=== PATIENT | female | born 1970 | race Caucasian/White ===

== ENCOUNTER → 2017-04-02 | Outpatient (CLI) | payer OTHER ==
--- NOTE | 2017-04-02 16:58 | RADIOLOGY REPORT (SQ) ---
EXAM DESCRIPTION: CT ABD/PELVIS WITH IV ORAL COMPLETED DATE/TIME: 04/02/2017 2:17 pm REASON FOR STUDY: EPIGASTRIC PAIN/LUQ PAIN/ VENTRAL HERNIA W/O OBSTRUCTION OR GANGRENE R10.13 EPIGA STRIC PAIN R10.12 LEFT UPPER QUADRANT PAIN COMPARISON: 06/18/2013 TECHNIQUE: CT scan of the abdomen and pelvis performed using helical scanning technique with dynamic intravenous contrast injection. No oral contrast. Images reviewed with lung, soft tissue, and bone windows. Reconstructed coronal and sagittal MPR images reviewed. Delayed images for evaluation of the urinary system also acquired. All images stored on PACS. All CT scanners at this facility use dose modulation, iterative reconstruction, and/or weight based d osing when appropriate to reduce radiation dose to as low as reasonably achievable (ALARA). [facility]: Dose Right [facility]: CareDose [facility]: Dose Right [facility]: Teradose 4D [facility]: Ion Torrent CONTRAST TYPE AND DOSE: contrast/concentration: Isovue 370.00 mg/ml; Total Contrast Delivered: 100.0 ml; Total Saline Delivered: 72.0 ml RENAL FUNCTION: None required. The patient is less than 50 years old. RADIATION DOSE: Up-to-date CT equipment and radiation dose reduction techniques were employed. CTDIv ol: 23.7 - 23.9 mGy. DLP: 2510 mGy-cm.. LIMITATIONS: None. FINDINGS: LOWER CHEST: No significant findings. No nodules or infiltrates. LIVER: Normal size. No masses. No dilated ducts. SPLEEN: Normal size. No focal lesions. PANCREAS: No masses. No significant calcifications. No adjacent inflammation or peripancreatic fluid collections. Pancreatic duct not dilated. GALLBLADDER: Surgically absent. ADRENAL GLANDS: No significant masses or asymmetry. RIGHT KIDNEY AND URETER: No solid masses. No significant calcifications. No hydronephrosis or hyd roureter. LEFT KIDNEY AND URETER: No solid masses. No significant calcifications. No hydronephrosis or hydr oureter. AORTA AND VESSELS: No aneurysm. No dissection. Renal arteries, SMA, celiac without stenosis. RETROPERITONEUM: No retroperitoneal adenopathy, hemorrhage or masses. BOWEL AND PERITONEAL CAVITY: No masses or inflammatory changes. No free fluid or peritoneal masses. APPENDIX: Normal. PELVIS: Urinary bladder and uterus are normal. A small ovarian cyst is seen on each side. There is no free fluid. ABDOMINAL WALL: There is a 3 cm ventral hernia just to the left and just below the umbilicus containi ng only fat. BONES: No significant or acute findings. OTHER: No other significant finding. IMPRESSION: 1. There is a small ventral hernia containing only fat. 2. There is a small ovarian cyst on each side. TECHNICAL DOCUMENTATION: JOB ID: [id number] Quality ID # [id number]: Final reports with documentation of one or more dose reduction techniques (e.g., Au tomated exposure control, adjustment of the mA and/or kV according to patient size, use of iterative reconstruction technique) 2010 [employer]- All Rights Reserved
== END ==
LOC: RAD 13:43
PROVIDERS: ATTEND Internal Medicine Gastroenterology
DX: R10.13 Epigastric pain (principal); R10.12 Left upper quadrant pain; K43.9 Ventral hernia without obstruction or gangrene
CPT/HCPCS: 74177

== ENCOUNTER 2017-08-14 08:49 | Day surgery (SDC) | payer OTHER ==
[2017-08-07 10:23] LABS: HEMATOCRIT 37.6 % (36.0-47.0); HEMOGLOBIN 12.8 g/dL (12.0-15.5); HGB HCT DIFFERENCE 0.8; MEAN CORPUSCULAR HEMOGLOBIN 27.8 pg (27.0-33.4); MEAN CORPUSCULAR VOLUME 82 fl (80-97); RED CELL DISTRIBUTION WIDTH 14.1 % (11.5-14.0); WHITE BLOOD COUNT 6.2 10^3/uL (4.0-10.5)
[~2017-08-14 08:49] MED LIST: ACETAMINOPHEN 325 MG TABLET PO PRN; CEFAZOLIN 1 GM/D5W RTU 1 GM/50 ML RTUPB IV PRN; DEXAMETHASONE SOD PHOSPHATE INJ 4 MG/1 ML VIAL ONE; GLYCOPYRROLATE INJ 0.4 MG/2 ML VIAL ONE; LACTATED RINGERS 1000 ML IV PRN; LIDOCAINE 2% INJ-PF (20 MG/ML) 2 ML AMPUL ONE; NEOSTIGMINE METHYLSULFATE 10 MG/10 ML VIAL ONE; ONDANSETRON HCL INJ/PF 4 MG/2 ML SDV ONE; SUCCINYLCHOLINE CHLORIDE INJ 200 MG/10 ML VIAL ONE
[2017-08-14] MEDS ORDERED: BUPIVACAINE HCL 0.25 % INJ/PF (2.5 MG/1 ML) 30 ML VIAL ONE (09:55)
[2017-08-14] MEDS ORDERED: MIDAZOLAM 2 MG/2 ML INJ ONE (12:05)
[2017-08-14] MEDS ORDERED: FENTANYL CITRATE INJ/PF 100 MCG/2 ML AMPUL ONE (12:06)
[2017-08-14] MEDS ORDERED: PROPOFOL INJ 200 MG/20 ML VIAL IV ONE (12:06)
[2017-08-14] MEDS ORDERED: ACETAMINOPHEN 100 ML IV ONE (12:06)
[2017-08-14] MEDS ORDERED: MORPHINE SULFATE 10 MG/ML INJ IV PRN (12:56)
[2017-08-14] MEDS ORDERED: FENTANYL CITRATE INJ/PF 100 MCG/2 ML AMPUL IV PRN ×3 (12:56)
[2017-08-14] MEDS ORDERED: OXYCODONE-ACETAMINOPHEN 5-325 MG TABLET PO PRN ×3 (12:56→14:23)
[2017-08-14] MEDS ORDERED: MEPERIDINE HCL/PF INJ 25 MG/1 ML DISP.SYRIN IV PRN (12:56)
[2017-08-14] MEDS ORDERED: PROMETHAZINE HCL INJ 25 MG/1 ML VIAL IV PRN ×2 (12:56)
[2017-08-14] MEDS ORDERED: DIPHENHYDRAMINE HCL 50 MG/ML VIAL IV PRN (12:56)
--- NOTE | 2017-08-14 14:19 | Operative Report ---
Operative Report DATE OF SURGERY: 08/14/17 PREOPERATIVE DIAGNOSIS: Ventral wall hernia POSTOPERATIVE DIAGNOSIS: Same OPERATION: Laparoscopic primary closure of umbilical hernia, with 15 cm Parietex mesh reinforcement, intra-peritoneal approach. SURGEON: SHAUNA RAUSCH HAM FACER: EARLINE PLATT ANESTHESIA: GA TISSUE REMOVED OR ALTERED: None COMPLICATIONS: None ESTIMATED BLOOD LOSS: Minimal INTRAOPERATIVE FINDINGS: See below PROCEDURE: Patient was taken to the main operating room where general anesthesia was induced. Arms were abducted abdomen exposed, prepped and draped in sterile fashion. Instrumentation set up for laparoscopic ventral wall hernia repair. Surgical plan and surgical timeout were conducted. Markings were made on the skin for planned 3 port approach. A left upper quadrant site was chosen, skin anesthetized with quarter percent Marcaine, knife wound made with the #10 blade, and a Veress needle inserted the peritoneal cavity. Pneumoperitoneum was established, Veress needle was removed , and a 5 mm port was inserted and a 5 mm viewing scope was inserted. Under direct visualization 2 additional 5 mm ports were placed, one in left lower quadrant and a third port in the right mid field. Findings were significant for adhesions between the omentum and the umbilical hernia. These were taken down methodically under direct visualization with the LigaSure laparoscopic energy device. In addition there were some additional adhesions between the distal end of the omentum and the anterior abdominal wall , midline going towards the pelvis once this was accomplished we ensured that hemostasis was excellent. We now turned our attention to the fascial defect which was approximately 5 cm in diameter and 3 cm in height. We proceeded to close the defect transversely with 2 [id number] #1 PDS sutures. This was affected by anesthetizing the skin with quarter percent Marcaine, making a small jose in the skin overlying the umbilicus with a 15 blade, and using suture passer, the suture was threaded through the anterior abdominal wall fascia thereby bringing the total defect closed transversely in a very satisfying in complete fashion. Conclusion photos were taken. We secured the knots and elevated the surrounding skin so that it was not puckered at the umbilicus. We now proceeded to reinforce the primary closure with a parietex mesh. A 15 cm prosthesis was brought onto the field after checking for it was affixed with sutures at the 12, 3, 6, and 9:00 positions with 0 PDS suture. We then moisten the mesh, rolled, brought into the anterior abdominal wall at the right side of port position. The mesh was unfolded, and affixed to the anterior abdominal wall using the suture passer at the 12, 3, 6, and 9:00 positions respectively. We then finished securing the mesh with a titanium tack rn angiography in 2 rows. Including photos demonstrated the mesh satisfactorily affixed to the anterior abdominal wall, peritoneal surface. We reinspected the omentum at the site of takedown from the intra-abdominal wall and hernia, and there was no evidence of mechanical bleeding. At this point felt the operation was complete. Sponge and needle counts are correct. All ports removed under direct visualization pneumoperitoneum evacuated. Wounds closed with 3-0 Vicryl benzoin and Steri-Strips. Patient tolerated the procedure well, extubated, taken to recovery room in stable condition. The physician technician assistant, Ms. Goldman, provided assistance during this case by: Assisting and port insertion, retracting tissue, instillation of local anesthesia and closure of skin incisions.
--- NOTE | 2017-08-14 14:21 | PDOC DISCHARGE SUMMARY ---
Discharge Summary (SDC) - Discharge Final Diagnosis: umbilical hernia Date of Surgery: 08/14/17 Discharge Date: 08/14/17 Condition: Stable Treatment or Instructions: [facility] [address], [place] [address] Discharge Instructions: Laparoscopic Surgery 1. General Information: a. DO NOT DRIVE a car or operate dangerous machinery for 3-4 days or while taking narcotic pain pills. b. DO NOT consume alcohol, tranquilizers, sleeping medications or any non- prescribed medications for 24 hours unless approved by your doctor or as long as taking narcotic prescription medications. c. DO NOT make important decisions or sign any important papers for the first 24 hours after surgery. d. When discharged home the same day of surgery have a responsible person with you for the first night. 2. Activity Restrictions: 8weeks. a. NO heavy lifting, straining abdominal muscles, bending over a lot, yard work, house work, or sports for [address] for 3-4 days c. It is fine to go for walks, up and down steps, ride in a car. d. Elevate your head when sleeping/resting. 3. Treatment: a. You may shower 24 hours after surgery, no baths or swimming for 2 weeks. Remove band-aids or dressings before shower but leave paper strips (steri-strips ) on the skin to fall off on their own. If still on at postoperative visit they will be removed then. b. Drainage of fluid or blood is not unusual from an incision. If occurs, you can clean with peroxide and cotton ball daily and cover with dry gauze until the wound seals. c. If a lot of bleeding occurs, you can hold pressure with a gauze or cloth over the site for 10 minutes and it will usually stop. If bleeding continues you will need to call for possible evaluation in office or emergency room. 4. Medications: a. _Toradol_ may be taken for pain as needed, one tablet every 6 hours. Stop the narcotic when able since you cannot take it and drive, and they cause constipation. You may switch to plain Tylenol, Advil or Aleve as you transition from the narcotic. Many adults find good pain relief with Advil 600-800 mg three times a day with meals. This can cause indigestion, ulcers, and kidney problems with long-term use. b. You should resume all normal medications unless a change is specified by your doctors. 5. Diet: Begin with clear liquids and may progress to your normal diet if not nauseated. No high fat, high protein foods the day of surgery. 6. The following may occur after laparoscopic surgery: a. Shoulder or upper back ache from retained gas that should resolve in 1-2 days b. Soreness and bruising at incision sites will resolve with time. c. Scrotal swelling (labia in women) and bruising is often seen after hernia surgery. d. Sore throat e. Fatigue may last days to weeks. f. Difficulty urinating may occur and may need to come into emergency room for urinary catheter placement. 7. Notify Physician If: a. Worsening or pain not improved with pain medication b. Persistent nausea and vomiting c. Fever above 101 d. Persistent bleeding or swelling at operative site e. Unable to urinate and uncomfortable bladder 6-8 hours after surgery 8..Follow Up Care: a. Schedule a follow up appointment with your doctor for 2 weeks. In the event of any postoperative problems or questions or you may call the office during business hours or the On-Call physician evenings and weekends at [facility]. [facility] I understand the instructions for my postoperative care as described above and a copy has been given to me. Patient/Significant Other Witness Date Prescriptions: Ketorolac Tromethamine [Toradol 10 mg Tablet] 10 mg PO Q6HP PRN #25 tablet PRN Reason: Discharge Diet: As Tolerated Discharge Activity: No Lifting Over 10 Pounds, No Lifting/Push/Pulling, Walk Frequently Report the Following to Your Physician Immediately: Vomiting, Increase in Pain, Fever over 101 Degrees, Unusual Bleeding, Swelling, Drainage-Foul Smelling
[2017-08-14] MEDS ORDERED: ONDANSETRON HCL INJ/PF 4 MG/2 ML SDV IV PRN (14:23)
[2017-08-14] MEDS: FENTANYL CITRATE INJ/PF 100 MCG/2 ML AMPUL ONE ×2 (14:45→14:55)
[2017-08-14] MEDS ORDERED: MORPHINE SULFATE 10 MG/ML INJ ONE (15:15)
[2017-08-14 17:26] VITALS: BP 120/75
[2017-08-14] MEDS ORDERED: SIMETHICONE 80 MG TAB.CHEW PO ONE (18:00)
== END 2017-08-14 17:41 | disposition home or self-care (01) ==
LOC: OROUT 08:49
PROVIDERS: ATTEND Surgery
PROC: 0WUF4JZ Supplement Abdominal Wall with Synthetic Substitute, Percutaneous Endoscopic Approach (ICD-10-PCS; principal; 2017-08-14 11:00)
DX: K43.9 Ventral hernia without obstruction or gangrene (principal); Z88.1 Allergy status to other antibiotic agents
CPT/HCPCS: 36415 ×2; 84703; 85027; 49652; C1781; J2250; J0690; J1100; J3010; J2270; J0330; J2405; J2704; J0131; J3490; 756